=== PATIENT | female | born 1960 | race Caucasian/White ===

== ENCOUNTER 2025-02-14 08:30 | Outpatient (RCR) | payer OTHER, SELFPAY ==
[2024-12-27 13:36] VITALS: BMI 31.4
== END 2025-03-12 10:07 | disposition home or self-care (01) ==
LOC: ANHDMC 08:30
PROVIDERS: PCP Internal Medicine; Visit Provider Internal Medicine
DX: E11.9 Type 2 diabetes mellitus without complications (principal); Z71.3 Dietary counseling and surveillance; Z71.89 Other specified counseling
CPT/HCPCS: 97802; G0108